=== PATIENT | male | born 1975 | race African-American/Black ===

== ENCOUNTER 2017-06-02 17:50 | Emergency (ER) | payer OTHER | END 2017-06-02 20:00 | disposition home or self-care (01) | LOC: CED 17:50 → CFTX 17:50 | DX: S05.02XA Injury of conjunctiva and corneal abrasion without foreign body, left eye, initial encounter (principal); H10.32 Unspecified acute conjunctivitis, left eye; Z23 Encounter for immunization; F17.210 Nicotine dependence, cigarettes, uncomplicated; W22.8XXA Striking against or struck by other objects, initial encounter; Y92.009 Unspecified place in unspecified non-institutional (private) residence as the place of occurrence of the external cause | CPT/HCPCS: 90471; 90715; 99283 ==

== ENCOUNTER 2017-07-27 16:24 | Emergency (ER) | payer OTHER ==
[~2017-07-27] VITALS: Ht 162.6 cm; Wt 77.1 kg
== END 2017-07-27 18:40 | disposition home or self-care (01) ==
LOC: CED 16:24 → CFTX 16:24
DX: T25.231A Burn of second degree of right toe(s) (nail), initial encounter (principal); L03.031 Cellulitis of right toe; F17.210 Nicotine dependence, cigarettes, uncomplicated; X19.XXXA Contact with other heat and hot substances, initial encounter; Y92.009 Unspecified place in unspecified non-institutional (private) residence as the place of occurrence of the external cause
CPT/HCPCS: 16020; 99283